=== PATIENT | male | born 1950 | race Caucasian/White ===

== ENCOUNTER 2019-07-07 20:31 | Inpatient (IN) | payer OTHER ==
[~2019-07-07] VITALS: Ht 175.3 cm; Wt 109.2 kg
[2019-07-07] MEDS ORDERED: methylPREDNISolone INJ 125 MG/2 ML VIAL (J2930) IV ONE (20:45)
[2019-07-07] MEDS ORDERED: ASPIRIN 81 MG CHEW TABLET PO ONE (20:45)
[2019-07-07] MEDS: LEVEMIR (INSULIN DETEMIR) 1 UNITS/0.01ML SC SCH (21:00)
[2019-07-07 21:01] LABS: VENOUS PH 7.413 UNITS (7.330-7.430)
[2019-07-07 21:02] LABS: VENOUS BASE EXCESS -1.2 (-2.0-2.0); VENOUS HCO3 22.9 MEQ/L (23.0-27.0); VENOUS O2 SATURATION 89.8 % (60.0-80.0); VENOUS PARTIAL PRESSURE CO2 36.7 mmHg (38.0-50.0); VENOUS PARTIAL PRESSURE O2 59.6 mmHg (30.0-50.0); VENOUS STANDARD HCO3 23.3 MEQ/L
[2019-07-07] MEDS: IPRATROPIUM 0.5MG/ALBUTEROL 2.5MG INH SOL UD 3ML (DUONEB)(J7620) NEB PRN ×2 (21:23→21:31)
[2019-07-07] MEDS ORDERED: ASPI81TA85 PO (21:29)
[2019-07-07] MEDS ORDERED: FURO40TA2 (21:29)
[2019-07-07] MEDS ORDERED: ATOR40TA75 PO (21:29)
[2019-07-07] MEDS ORDERED: LANTINJ4 SC (21:29)
[2019-07-07] MEDS ORDERED: GLYB25TA (21:29)
[2019-07-07] MEDS ORDERED: OMEP40CA97 PO (21:29)
[2019-07-07 21:44] LABS: BASO % 0.2 % (0.0-1.0); EOS # 0.1 10^3/uL (0.0-0.5); EOS % 1.2 % (0.0-3.0); HEMATOCRIT 40.1 % (42.0-52.0); HEMOGLOBIN 14.1 g/dl (13.5-17.5); LYMPH % 22.3 % (24.0-44.0); MEAN CORPUSCULAR HEMOGLOBIN 31.7 pg (27.0-33.0); MEAN CORPUSCULAR HGB CONC 35.2 g/dl (32.0-36.5); MEAN CORPUSCULAR VOLUME 90.1 fl (80.0-96.0); MONO # 0.6 10^3/uL (0.0-0.8); NEUTROPHILS % 68.6 % (36.0-66.0); PLATELET COUNT, AUTOMATED 181 10^3/uL (150-450); RED BLOOD COUNT 4.45 10^6/uL (4.30-6.10); WHITE BLOOD COUNT 8.8 10^3/uL (4.0-10.0)
[2019-07-07 21:55] LABS: INR 1.06; PROTHROMBIN TIME 13.5 SECONDS (11.8-14.0)
[2019-07-07 22:13] LABS: D-DIMER QUANT > 4000 ng/ml (<500)
[2019-07-07 22:24] LABS: ALBUMIN 3.6 GM/DL (3.2-5.2); BILIRUBIN,DIRECT 0.2 MG/DL (0.0-0.2); BILIRUBIN,TOTAL 0.5 MG/DL (0.2-1.0); CALCIUM LEVEL 8.9 MG/DL (8.8-10.2); CK-MB VALUE MASS 1.8 NG/ML (<3.6); CREATININE FOR GFR 1.28 MG/DL (0.70-1.30); GLOMERULAR FILTRATION RATE 59.7 (>49); MB/CK RELATIVE INDEX 2.2 (< OR =4); POTASSIUM SERUM 4.2 MEQ/L (3.5-5.1); TOTAL PROTEIN 6.7 GM/DL (6.4-8.2); TROPONIN I 0.25 NG/ML (< 0.10)
[2019-07-07] MEDS ORDERED: HumuLIN R (REGULAR) INSULIN (NovoLIN R) **100U/ML** PER UNIT IV ONE (23:00)
[2019-07-07] MEDS ORDERED: ISOVUE-370 76% 100ML VIAL (Q9967) As Ordered ONE (23:07)
--- NOTE | 2019-07-07 23:43 | REPVR ---
PROCEDURE INFORMATION: Exam: CT Angiography Chest With Contrast Exam date and time: 07/07/2019 10:41 PM Clinical history: 69 years old, male; Shortness of breath; Chest pain; Type not specified; Additional info: Cp SOB TECHNIQUE: Imaging protocol: Computed tomographic angiography of the chest with intravenous contrast. 3D rendering: MIP reconstructed images were created and reviewed. Radiation optimization: All CT scans at this facility use at least one of these dose optimization techniques: automated exposure control; mA and/or kV adjustment per patient size (includes targeted exams where dose is matched to clinical indication); or iterative reconstruction. Contrast material: ISO; Contrast volume: 75 ml; Contrast route: AC; COMPARISON: CR PORTABLE CHEST X-RAY 07/07/2019 9:11 PM FINDINGS: Pulmonary arteries: The main pulmonary artery measures 30 mm. There is moderately prominent bilateral pulmonary embolism which involves all lobes. Aorta: The ascending thoracic aorta measures 30 mm. Lungs: Minimal bibasilar fibro-atelectatic change. Pleural space: Unremarkable. No pneumothorax. No pleural effusion. Heart: RV diameter is 5.4 cm, LV diameter is 3.2 cm. RV/LV ratio is 1.7. Liver: The liver attenuation is 44 Hounsfield units and the spleen is 78 Hounsfield units. Lymph nodes: Unremarkable. No enlarged lymph nodes. Bones/joints: Unremarkable. No acute fracture. Soft tissues: Unremarkable. IMPRESSION: 1. Moderately prominent bilateral pulmonary embolism involving all lobes. 2. Elevated RV/LV ratio of 1.7. Electronically signed by: Amari Card On 07/07/2019 23:43:09 PM
[2019-07-08] VITALS (25 sets, daily range): BP systolic 121–137; BP diastolic 62–81; O2SAT 82–96
[2019-07-08 00:04] LABS: CK-MB VALUE MASS 1.9 NG/ML (<3.6); MB/CK RELATIVE INDEX 2.47 (< OR =4); TROPONIN I 0.28 NG/ML (< 0.10)
[2019-07-08] MEDS ORDERED: ATOR40TA75 PO (00:13)
[2019-07-08] MEDS ORDERED: OMEP-218 PO (00:13)
[2019-07-08] MEDS ORDERED: FURO40TA2 PO (00:13)
[2019-07-08] MEDS ORDERED: GLYB25TA PO (00:13)
[2019-07-08] MEDS ORDERED: ASPI-161 PO (00:13)
[2019-07-08] MEDS ORDERED: LANTINJ4 SC (00:13)
[2019-07-08] MEDS ORDERED: METF10004 PO (00:16)
[2019-07-08] MEDS ORDERED: LISI-1046 PO (00:16)
[2019-07-08] MEDS ORDERED: FISH1000 PO (00:16)
[2019-07-08] MEDS ORDERED: DONE10TA90 PO (00:16)
[2019-07-08] MEDS ORDERED: NAME10TA PO (00:16)
[2019-07-08] MEDS ORDERED: VITA-145 PO (00:16)
[2019-07-08] MEDS ORDERED: HEPARIN SOD (PORCINE) 5000 UNITS/ML VIAL IV PRN (00:30)
[2019-07-08] MEDS ORDERED: HEPARIN SOD (PORCINE) 5000 UNITS/ML VIAL IV ONE (00:30)
[2019-07-08 01:34] LABS: PARTIAL THROMBOPLASTIN TIME 32.3 SECONDS (25.0-38.4)
[2019-07-08] MEDS: HEPARIN DRIP 25,000 UNITS in IV 1 EA IV SCH ×2 (03:03→22:01)
--- NOTE | 2019-07-08 03:07 | REP ---
Clinical: Cough and dyspnea . Comparison: None . Findings: The mediastinum and cardiac silhouette are stable and within normal limits for portable technique. The lung butterfield are clear without acute consolidation, effusion, or pneumothorax. Skeletal structures are intact. Impression: No acute cardiopulmonary process appreciated. Electronically Signed by Abel Osorio MD 07/08/2019 02:57 A
[2019-07-08] MEDS ORDERED: DEXTROSE 50% 50 ML SYRINGE IV PRN (03:15)
[2019-07-08] MEDS ORDERED: GLUCOSE 4 GM CHEW TABLET PO PRN (03:15)
[2019-07-08] MEDS ORDERED: GLUCAGON FOR INJ 1 MG VIAL (J1610) SC PRN (03:15)
--- NOTE | 2019-07-08 05:56 | HPEPDOC ---
[facility] Medical History & Physical Date of Admission Jul 08, 2019 Date of Service: Jul 08, 2019 Attending Physician: DELANO MIKE MD History and Physical CHIEF COMPLAINT: Shortness of breath with chest tightness HISTORY OF PRESENT ILLNESS: Jaspal a 69-year-old male with a pertinent past medical history of early onset dementia and diabetes mellitus II, who presented to the emergency department on the evening of 07/07 with the chief complaints of shortness of breath with accompanying chest tightness and right pectoral pain. Patient reports becoming acutely short of breath around 7 PM while at his jewish with accompanying dizziness and near syncope. Patient was able to catch himself before fainting or falling. He was also experiencing palpitations, early exhaustion, and 9/10, nonradiating, constant, sharp pain in his right pectoral area. Patient was able to steady himself enough to ambulate to his vehicle. Patient had to stop every 10 feet or so to rest while ambulating to the car his dyspnea and exhaustion was so acutely severe. Patient sat in his car for about 10 minutes to a point where he felt okay enough to drive home. When patient arrived home around 8 PM, his continued significant dyspnea with palpitations and early exhaustion with even minimal activity convinced him to present to the emergency department. Patient says he's never had this constellation of symptoms before. In the emergency department, patient received 2 nebulizer treatments that sign ificantly improved his dyspnea. His right pectoral chest pain had diminished at this point to a 2/10. Patient also endorsed some mild generalized weakness and shortness of breath over the previous week. He denies any recent illness, recent change in medications, recent sick contacts. Denies any recent extensive travel or long periods of inactivity, as he is active with his jewish and as a [employer] r. He denies any recent surgeries or any recent falls or trauma. He has no history of DVT, pulmonary and was in, clotting disorder, family, clotting disorder, bleeding disorder, or family being disorder. Patient takes 81 mg aspirin at home and has never taken a blood thinning medication. In addition to the 2 nebulizer treatments, patient also received a loading dose of Solu-Medrol and a 324 mg of chewable aspirin in the ED. CTA of the chest showed moderately prominent bilateral pulmonary emboli involving all lobes. There was also an increased right ventricle the left ventricle ratio. Initial troponins were 0.25 in increased on repeat 2.28. D-dimer was greater than 4000. Fasting glucose was elevated. Initial CBC and portable chest x-ray were unremarkable. Patient is transitioning to the [place] for his primary care from Dr. Marcus in [place]. He also follows with an industrial relations representative in [place] and follows with a neurologist [facility] (Dr. Brandon). Patient verbalizes to hospitalist team that his CODE STATUS is DNR/DNI. Patient was admitted to the progressive care unit under medical management of the hospitalist team. Patient was started on a heparin drip and telemetry. PAST MEDICAL HISTORY: Early-onset dementia Diabetes mellitus II Left-sided vestibular cochlear nerve issues Bilateral hearing loss PAST SURGICAL HISTORY: Bilateral total knee replacements (left 1999, right 2003) Bilateral surgical shoulder repairs Left patellar fracture surgical repair with hardware Tonsillectomy, 8 years old SOCIAL HISTORY: Marital status: Resides: At home with Children: One adopted child, Employment: Retired, 20 [employer] career, followed by [address] [employer], [place]. 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 Tobacco use: Smoked pipe tobacco for 30 years, averaging one pack per day. Quit 24 years ago. ETOH: Yes, averages one beer or 2 glasses of wine per day Illicit drug use: No active use and only experimented with marijuana roughly 30 years ago while in the [employer] IV drug use: Denies FAMILY HISTORY: Father: Hypertension and liver cirrhosis Mother: Multiple myeloma and hypertension Siblings: Diabetes mellitus II with significant complications, sister Hereditary Diseases: No family history of clotting or bleeding disorders. ALLERGIES: Please see below. REVIEW OF SYSTEMS: CONSTITUTIONAL: Endorses persistent chills; denies fever, night sweats, recent unintentional significant change in weight HEENT: Endorses feeling dizzy over the past week, endorses blurry vision; denies headache, feeling lightheaded, dysphagia, or odynophagia CARDIOVASCULAR: Endorses 2/10 right pectoral chest pain, endorses bilateral lower extremity swelling; denies chest pressure or palpitations at time of exam RESPIRATORY: Endorses dry cough; denies feeling shortness of breath at time of exam, denies pleuritic chest pain at time of exam GASTROINTESTINAL: Denies abdominal pain, feeling nauseated, or vomiting MUSCULOSKELETAL: Denies any specific muscle or joint pain NEUROLOGICAL: Endorses bilateral pedal numbness ENDOCRINE: Endorses polydipsia, endorses cold intolerance HEMATOLOGIC/LYMPHATIC: Denies any easy bleeding or bruising HOME MEDICATIONS: Please see below. PHYSICAL EXAMINATION: VITAL SIGNS: Temperature 97.6, pulse 118, respiratory rate 16, blood pressure 128/78, pulse oximetry 88-90% on 5 L nasal cannula. GENERAL APPEARANCE: Pleasant, very loquacious man who is on 5 L nasal cannula supplemental oxygen while lying upright in bed. He is awake, alert and oriented 3. He is interactive and is speaking in full sentences without getting short of breath. He does not appear to be in any acute respiratory distress. HEENT: Normocephalic, atraumatic. Anicteric sclera. Pupils are equal, round and reactive to light and accommodation. Extraocular motion is intact. Mucous memb ranes are pink and moist. There is no frontal exudate or erythema. Front upper teeth absent. No palpable cervical or supraclavicular lymphadenopathy CARDIOVASCULAR: Tachycardic. Heart sounds were distant but normal S1, S2 was appreciated. Difficult to appreciate for any murmurs, rubs, or gallops. Due to distant heart sounds. Good capillary refill. Palpable radial pulses bilaterally. LUNGS: Mildly diminished tidal volume. Lungs were clear to auscultation bilaterally, anteriorly and posteriorly. Symmetric chest expansion. There did not appear to be any accessory muscle use, lip pursing, or retractions with respiration. There was no tympany to percussion, nor was there any e to a egophony. Patient was receiving 5 L of supplemental oxygen by nasal cannula. He was speaking in full sentences without getting short of breath while lying in bed. ABDOMEN: Soft, obese, nontender, nonpainful to palpation. Normoactive bowel sounds present. No palpable masses appreciated. MUSCULOSKELETAL: 5 out of 5 muscle strength testing of upper extremities and lower extremities bilaterally EXTREMITIES: 2+ right lower extremity pitting edema, 3+ left lower extremity pitting edema. Palpable radial pulses bilaterally as well as palpable right dorsalis pedis pulse. Difficult to appreciate pulses on the left lower extremity due to edema. There was no calf tenderness to palpation. There is no erythema or warmth of bilateral lower extremities. NEUROLOGICAL: Awake, alert and oriented 3. Interactive and responding properly to questions and commands. On cranial nerve testing, there was diminished hearing in bilateral ears, otherwise grossly intact. There were no focal deficits appreciated. There was diminished sensation of light touch bilateral feet. PSYCHIATRIC: Very gregarious and loquacious man with appropriate mood and appropriate affect. LABORATORY DATA: Please see below. IMAGIN/17, Chest CT angiography Moderately prominent bilateral pulmonary embolism involving all lobes. Elevated RV/LV ratio of 1.7. 07/07, portable Chest X-ray- no acute cardiopulmonary process appreciated. MICROBIOLOGY: Please see below. ASSESSMENT & PLAN: This is a 69-year-old male with pertinent past medical history of early-onset dementia and diabetes mellitus II who developed acutely severe dyspn ea with accompanying palpitations, dizziness, and right pectoral chest pain earlier this evening. Patient presented the emergency department and was found to have bilateral pulmonary emboli that were moderately prominent and involving all lung lobes. Patient has no previous history of DVT or PE with no personal or family history of clotting or bleeding disorders. Patient denies any recent extensive travel, recent surgery, recent long period of inactivity, recent change in medication, or recent trauma/fall. Patient has never been on any blood thinning medication. #Submassive bilateral pulmonary emboli -CTA showed moderately prominent bilateral pulmonary emboli involving all lobes. There was also right ventricular strain noted and accompanying positive troponins/troponin leak -Patient started on heparin drip due to the presentation and extent of bilateral PEs. Likely continue drip for at least 24 hours, and if patient remains hemodynamically stable, potentially could switch to Eliquis or warfarin. -Patient frankly volume overloaded with bilateral pitting edema, but this is a secondary concern at this time to addressing the PE. Patient is hemodynamically stable, but the risk of hemodynamic instability remains secondary to known right ventricular strain. As a result, patient's home diuretic was held. Diuretics may be resumed when patient is clinically stable and has shown sustained hemodynamic stability. -Echocardiogram ordered for today in the setting of increased right ventricular to left ventricular ratio on CTA. -Patient on telemetry -Patient's home 81mg aspirin continued -Patient placed on bedrest with bathroom privileges due to risk of bleeding with heparin drip if fall occurs #Diabetes mellitus II -Initial fasting glucose 459 with POC 331 -Patient's home metformin and glyburide were held -Continuing with patient's home insulin glargine and atorvastatin -Patient on finger stick blood sugars before meals and at bedtime with sliding scale insulin coverage before meals and at bedtime -Consistent carb diet ordered #Early-onset dementia -Patient was awake, alert and oriented 3 during exam. He was interactive, responding appropriately to questions commands -Continue with home amantadine and donepezil #DVT prophylaxis: Patient is currently on heparin drip Vital Signs Vital Signs Date Time Temp Pulse Resp B/P (MAP) Pulse Ox O2 Delivery O2 Flow Rate FiO2 07/08/19 02:05 97.6 120 21 128/78 (95) 90 Nasal Cannula 5.0 Laboratory Data Labs 24H Laboratory Tests 2 07/07/19 20:52: Blood Gas Bicarbonate Standard 23.3, Venous Blood pH 7.413, Venous Blood Partial Pressure CO2 36.7L, Venous Blood Partial Pressure O2 59.6H, Venous Blood Total Carbon Dioxide 24.0, Venous Blood HCO3 22.9L, Venous Blood Oxygen Saturation 89.8H, Venous Blood Base Excess -1.2 07/07/19 21:39: Immature Granulocyte % (Auto) 0.7, Neutrophils (%) (Auto) 68.6H, Lymphocytes (%) (Auto) 22.3L, Monocytes (%) (Auto) 7.0H, Eosinophils (%) (Auto) 1.2, Basophils (%) (Auto) 0.2, Neutrophils # (Auto) 6.0, Lymphocytes # (Auto) 2.0, Monocytes # (Auto) 0.6, Eosinophils # (Auto) 0.1, Basophils # (Auto) 0.0, Nucleated Red Blood Cells % (auto) 0.0, Prothrombin Time 13.5, Prothromb Time International Ratio 1.06, Activated Partial Thromboplast Time 32.3, D-Dimer, Quantitative > 4000H, Anion Gap 7L, Glomerular Filtration Rate 59.7, Calcium Level 8.9, Total Bilirubin 0.5, Direct Bilirubin 0.2, Aspartate Amino Transf (AST/SGOT) 66H, Alanine Aminotransferase (ALT/SGPT) 88H, Alkaline Phosphatase 114, Total Creatine Kinase 82, Creatine Kinase MB 1.8, Creatine Kinase MB Relative Index 2.20, Troponin I 0.25H, VP-Xka-K-Type Natriuretic Peptide 84, Total Protein 6.7, Albumin 3.6, Albumin/Globulin Ratio 1.16 07/07/19 23:25: Total Creatine Kinase 77, Creatine Kinase MB 1.9, Creatine Kinase MB Relative Index 2.47, Troponin I 0.28H 10/18/19 00:05: Bedside Glucose (Misc Panel) 331H 07/08/19 03:00: Bedside Glucose (Misc Panel) 354H CBC/BMP Laboratory Tests 07/07/19 21:39 Home Medications Scheduled Aspirin (Aspirin EC) 81 Mg Tablet.dr, 81 MG PO DAILY Atorvastatin Calcium (Atorvastatin Calcium) 40 Mg Tablet, 40 MG PO DAILY Cholecalciferol (Vitamin D3) (Vitamin D3) 1,000 Unit Tablet, 2,000 UNIT PO DAILY Donepezil HCl (Donepezil HCl) 10 Mg Tablet, 10 MG PO DAILY Furosemide (Furosemide) 40 Mg Tablet, 40 MG PO DAILY Glyburide (Glyburide) 2.5 Mg Tablet, 2.5 MG PO DAILY Insulin Glargine,Hum.rec.anlog (Lantus Solostar) 100 Unit/1 Ml Insuln.pen, 50 UNITS SC QHS Lisinopril (Lisinopril) 2.5 Mg Tablet, 2.5 MG PO DAILY Memantine HCl (Namenda) 10 Mg Tablet, 10 MG PO BID Metformin HCl (Metformin HCl) 1,000 Mg Tablet, 1,000 MG PO BIDPC [place]-3 Fatty Acids/Fish Oil (Fish Oil 1,000 mg Capsule) 1 Each Capsule, 1,000 MG PO DAILY Omeprazole (Omeprazole) 20 Mg Capsule.dr, 20 MG PO DAILY Allergies Coded Allergies: No Known Allergies (Unverified , 07/07/19) A-FIB/CHADSVASC A-FIB History Current/History of A-Fib/PAF?: No Current PO Anticoag Therapy: No (patient currently on heparin drip) GME ATTESTATION GME ATTESTATION My faculty preceptor for this patient encounter was physically present during the encounter and was fully available. All aspects of the patient interview, examination, medical decision making process, and medical care plan development were reviewed and approved by the faculty preceptor. The faculty preceptor is aware and concurs with the plan as stated in the body of this note and will attest to such by his/her cosignature. ATTENDING NOTE I agree with the excellent synopsis by Dr. Paz above. Briefly Mr. 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 We started him on a heparin gtt overnight with tentative plan to switch him to eliquis before discharge. Of note, these PEs appear to be unprovoked in this very active gentleman, and will warrant outpatient work up for possible precipitants including indicated age appropriate cancer screening. DAVIS JEAN PGY-1 Jul 08, 2019 05:56 DELANO MIKE MD Jul 08, 2019 08:28
[2019-07-08] MEDS ORDERED: HumaLOG INSULIN (NovoLOG) PER UNIT SC SCH (06:00)
[2019-07-08] MEDS: HumaLOG INSULIN (NovoLOG) PER UNIT SC SCH ×4 (07:41→20:52)
[2019-07-08] MEDS: VITAMIN D 1,000 INTERNATIONAL UNITS TABLET PO SCH (09:20)
[2019-07-08] MEDS: OMEPRAZOLE 20 MG CAP PO SCH (09:20)
[2019-07-08] MEDS: MEMANTINE 5MG TABLET (NAMENDA) PO SCH ×2 (09:20→20:53)
[2019-07-08] MEDS: ATORVASTATIN 20 MG TAB PO SCH (09:21)
[2019-07-08] MEDS: ASPIRIN 81 MG ENTERIC TAB PO SCH (09:21)
[2019-07-08] MEDS: DONEPEZIL 5 MG TAB PO SCH (09:21)
--- NOTE | 2019-07-08 19:48 | ECGEPIP ---
[facility] - ED Test Date: 2019-07-07 Pat Name: KG MENDEZ Department: Room: [place] [address] Gender: Male High Scaler: jeronimo : 1950 Requested By: SANJANA MANZO Order Number: [id number] Reading MD: Keith Barrow Measurements Intervals [place] Rate: 129 P: 62 WY: 153 QRS: 69 QRSD: 102 T: 5 QT: 325 QTc: 477 Interpretive Statements SINUS TACHYCARDIA NONSPECIFIC ST & T-WAVE ABNORMALITY ABNORMAL RHYTHM ECG PROLONGED QTC NO PRIOR ECG FOR COMPARISON Electronically Signed on 07-08-2019 19:48:01 EDT by Keith Barrow
--- NOTE | 2019-07-08 19:53 | ECGEPIP ---
[facility] - ED Test Date: 2019-07-07 Pat Name: KG MENDEZ Department: Room: [place] [address] Gender: Male Lap Regulator: ARSLAN : 1950 Requested By: SANJANA MANZO Order Number: [id number] Reading MD: Keith Barrow Measurements Intervals [place] Rate: 119 P: 59 MT: 175 QRS: 63 QRSD: 92 T: -7 QT: 352 QTc: 496 Interpretive Statements SINUS TACHYCARDIA NONSPECIFIC T-WAVE ABNORMALITY PROLONGED QTC CW 07/07/[address] T WAVE CHANGES Electronically Signed on 07-08-2019 19:52:57 EDT by Keith Barrow
[2019-07-08] MEDS: LEVEMIR (INSULIN DETEMIR) 1 UNITS/0.01ML SC SCH (20:53)
--- NOTE | 2019-07-08 22:14 | ECHO ---
DATE OF PROCEDURE: 07/08/2019 REFERRING PHYSICIAN: Dr. José Antonio Camarillo- PGY-1 INDICATION: Dyspnea. HEIGHT: 175 cm WEIGHT: 108 kg 2D MEASUREMENTS: Left ventricle diastole: 3.7 cm Ventricular septum: 0.98 cm Posterior wall: 1.07 cm LVOT: 2.0 cm Aortic root: 2.4 cm Left atrium: 3.4 cm Inferior vena cava: 2.1 cm DOPPLER MEASUREMENTS: Aortic valve velocity: 228 cm/s LVOT velocity: 90.0 cm/s LVOT VTI: 16.2 cm Mitral E velocity: 59.1 cm/s Mitral A velocity: 78.8 cm/s Very mild tricuspid regurgitation. Estimated right ventricle systolic pressure at least 50 mmHg assuming a right atrial pressure of at least 20 mmHg. No aortic regurgitation. No aortic stenosis. No mitral regurgitation. No pulmonic regurgitation. MITRAL ANNULAR TISSUE DOPPLER: E prime septal: 7.1 cm/s E prime lateral: 6.6 cm/s DESCRIPTION: Rhythm was sinus tachycardia. Image quality was fair. No pericardial effusion. This was a 2D, M-mode, color flow Doppler and pulse wave Doppler examination that included mitral annular tissue Doppler. CONCLUSIONS: 1. At least mild right ventricle dilatation with presence of right ventricle hypertrophy and prominent moderator band of the right ventricle. The appearance of moderate reduction in overall right ventricle systolic function. At least mild right atrial dilatation. Suggestive of at least moderate elevation of estimated right ventricle systolic pressure (at least 50 mmHg). Inferior vena cava plethora with marked reduction of respiratory variation suggestive of central venous pressure of at least 20 mmHg. 2. Normal left ventricle internal dimensions and wall thickness. Normal regional left ventricle (LV) wall motion and wall thickening. Normal LV systolic function. Left ventricular ejection fraction (LVEF) 65% by visual estimate. Grade 1 LV diastolic dysfunction. 3. Severe focal thickening and focal cusp deposits of a three-cuspid aortic valve. No reduction in aortic cusp mobility. No aortic stenosis. No aortic regurgitation. 4. Mild mitral annular calcification. No mitral regurgitation. 5. No pericardial effusion.
[2019-07-09] VITALS (24 sets, daily range): BP systolic 117–150; BP diastolic 71–82; O2SAT 87–96
[2019-07-09 05:58] LABS: HEMOGLOBIN 12.9 g/dl (13.5-17.5); MEAN CORPUSCULAR HEMOGLOBIN 31.1 pg (27.0-33.0); MEAN CORPUSCULAR HGB CONC 33.9 g/dl (32.0-36.5); MEAN CORPUSCULAR VOLUME 91.6 fl (80.0-96.0); PLATELET COUNT, AUTOMATED 184 10^3/uL (150-450); RED BLOOD COUNT 4.15 10^6/uL (4.30-6.10); WHITE BLOOD COUNT 9.6 10^3/uL (4.0-10.0)
[2019-07-09] MEDS: MEMANTINE 5MG TABLET (NAMENDA) PO SCH ×2 (08:21→21:31)
[2019-07-09] MEDS: DONEPEZIL 5 MG TAB PO SCH (08:21)
[2019-07-09] MEDS: ATORVASTATIN 20 MG TAB PO SCH (08:21)
[2019-07-09] MEDS: HumaLOG INSULIN (NovoLOG) PER UNIT SC SCH ×4 (08:21→21:00)
[2019-07-09] MEDS: OMEPRAZOLE 20 MG CAP PO SCH (08:21)
[2019-07-09] MEDS: ASPIRIN 81 MG ENTERIC TAB PO SCH (08:21)
[2019-07-09] MEDS: VITAMIN D 1,000 INTERNATIONAL UNITS TABLET PO SCH (08:21)
[2019-07-09] MEDS: HEPARIN DRIP 25,000 UNITS in IV 1 EA IV SCH (14:37)
--- NOTE | 2019-07-09 16:07 | IPNPDOC ---
Text Note Date of Service The patient was seen on 07/09/19. NOTE SUBJECTIVE: SUBJECTIVE: Mr. Tai reports that he is breathing more easily. He does not have any chest pain. Patient was admitted with bilateral pulmonary emboli. OBJECTIVE: Please see vital signs below--she has attained. O2 sats of 97% on 4 L/m; his FiO2 is being weaned down Physical exam: HENT: Neck is supple with no adenopathy or thyromegaly, oral mucosa is moist Cardiovascular exam shows a regular rate and rhythm. Respiratory: No rhonchi, rales, wheezes or cough. There is no pain to palpation of the chest wall. Abdomen: Soft, nontender, nondistended, positive bowel tones. Extremities: Patient has trace to 1+ pitting edema to both lower extremities ASSESSMENT/PLAN: 1. "Submassive" bilateral pulmonary emboli. Patient has been placed on a heparin drip. He had had some shortness of breath but has improved significantly. We are weaning his FiO2. We're hopeful of attaining room air. Once the patient is tolerant of activity and weaned down to room air he can be transitioned off of heparin soon to an oral anticoagulant and discharged to home. 2. History of and concern for congestive heart failure. Echocardiogram shows an ejection fraction of 65%. Note is made of grade 1 diastolic dysfunction. There is no notable valvular dysfunction. Right ventr icular systolic pressure is elevated a bit at 50 mmHg. Patient will continue with his diuretic regimen. 3. Qet-[id number]-hhazuvnqs diabetes mellitus. Patient had had some hyperglycemia; we have restored his basal bolus insulin, metformin and glyburide. 4. Dementia. Patient is reported to have early dementia. He is maintained on amantadine and donepezil. 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 VS,Fishbone, I+O VS, Fishbone, I+O Laboratory Tests 07/09/19 05:44 Vital Signs Date Time Temp Pulse Resp B/P (MAP) Pulse Ox O2 Delivery O2 Flow Rate FiO2 07/09/19 14:00 91 Nasal Cannula 2.0 07/09/19 12:00 98.5 100 18 120/78 (92) I&O- Last 24 Hours up to 6 AM 07/09/19 06:00 Intake Total 1600 ml Output Total 2450 ml Balance -850 ml TIMOTHY SHEPARD MD Jul 09, 2019 16:07
[2019-07-09] MEDS: LISINOPRIL *2.5 MG* TAB PO SCH (16:29)
[2019-07-09] MEDS: FUROSEMIDE 40 MG TAB PO SCH (16:30)
[2019-07-09] MEDS: metFORMIN (GLUCOPHAGE) 1000 MG TABLET PO SCH (18:09)
[2019-07-09] MEDS: LEVEMIR (INSULIN DETEMIR) 1 UNITS/0.01ML SC SCH (21:30)
[2019-07-10] VITALS (9 sets, daily range): BP systolic 109–138; BP diastolic 67–78; O2SAT 85–95
[2019-07-10 06:21] LABS: HEMATOCRIT 38.4 % (42.0-52.0); HEMOGLOBIN 13.2 g/dl (13.5-17.5); MEAN CORPUSCULAR HGB CONC 34.4 g/dl (32.0-36.5); MEAN CORPUSCULAR VOLUME 90.1 fl (80.0-96.0); PLATELET COUNT, AUTOMATED 203 10^3/uL (150-450); RED BLOOD COUNT 4.26 10^6/uL (4.30-6.10); WHITE BLOOD COUNT 7.6 10^3/uL (4.0-10.0)
[2019-07-10] MEDS: HEPARIN DRIP 25,000 UNITS in IV 1 EA IV SCH (07:56)
[2019-07-10] MEDS ORDERED: glyBURIDE 2.5 MG TAB PO SCH (08:00)
[2019-07-10] MEDS: HumaLOG INSULIN (NovoLOG) PER UNIT SC SCH ×2 (08:01→12:36)
[2019-07-10] MEDS: MEMANTINE 5MG TABLET (NAMENDA) PO SCH (08:53)
[2019-07-10] MEDS: LISINOPRIL *2.5 MG* TAB PO SCH (08:53)
[2019-07-10] MEDS: FUROSEMIDE 40 MG TAB PO SCH (08:53)
[2019-07-10] MEDS: ATORVASTATIN 20 MG TAB PO SCH (08:54)
[2019-07-10] MEDS: ASPIRIN 81 MG ENTERIC TAB PO SCH (08:54)
[2019-07-10] MEDS: metFORMIN (GLUCOPHAGE) 1000 MG TABLET PO SCH (08:54)
[2019-07-10] MEDS: OMEPRAZOLE 20 MG CAP PO SCH (08:54)
[2019-07-10] MEDS: VITAMIN D 1,000 INTERNATIONAL UNITS TABLET PO SCH (08:54)
[2019-07-10] MEDS: DONEPEZIL 5 MG TAB PO SCH (08:54)
[2019-07-10] MEDS ORDERED: ELIQ5TAB PO (10:37)
--- NOTE | 2019-07-10 18:00 | DS.PDOC ---
Discharge Summary General Date of Admission Jul 08, 2019 at 00:24 Date of Discharge July 10, 2019 Discharge Summary PROCEDURES PERFORMED DURING STAY: Echocardiogram. ADMITTING DIAGNOSES: 1. Bilateral pulmonary emboli. DISCHARGE DIAGNOSES: 1. Bilateral pulmonary emboli, early onset dementia, diabetes mellitus, hearing loss. COMPLICATIONS/CHIEF COMPLAINT: Pulmonary Emboli. HISTORY OF PRESENT ILLNESS/HOSPITAL COURSE: This is a 69-year-old male who develops chest and pectoral pain. It was accompanied by acute shortness of breath and dizziness. He continued to have disturbing symptoms, especially to his right pectoral area. He noted fatigue that was unusual for him. He subsequently came to the emergency room for evaluation and was found to have bilateral pulmonary emboli. Patient was admitted to the PCU. He was placed on anticoagulation with heparin drip. Of interest, the patient has no family history of any sort of clotting disorder and he's never had a clotting episode in the past. CT angios showed prominent bilateral pulmonary emboli with involvement of "all lobes". Echocard iogram showed left ventricular ejection fraction of 65%, grade 1 diastolic dysfunction and estimated right ventricular systolic pressure 50 mm with right atrial dilatation and decreased right ventricular systolic function. The patient did well. Remarkably, he did not have any cough or chest pain. He did have shortness of breath and fatigue that resolved over the next couple of days to where he could be weaned to room air. He was then fully tolerant of activity. He was then subsequently transitioned from the heparin drip to oral Eliquis. He will be on oral anticoagulation for 3-6 months.. DISCHARGE MEDICATIONS: Please see below. ALLERGIES: Please see below. PHYSICAL EXAMINATION ON DISCHARGE: VITAL SIGNS: Please see below. HENT: Neck is supple with no adenopathy or thyromegaly, oral mucosa is moist Cardiovascular exam shows a regular rate and rhythm. Respiratory: No rhonchi, rales, wheezes or cough. There is no pain to palpation of the chest wall. Abdomen: Soft, nontender, nondistended, positive bowel tones. Extremities: Patient has trace to 1+ pitting edema to both lower extremities, otherwise nontender and no palpable cord LABORATORY DATA: Please see below. IMAGING: CHEST CT ANGIOGRAPHY IMPRESSION: 1. Moderately prominent bilateral pulmonary embolism involving all lobes. 2. Elevated RV/LV ratio of 1.7. Electronically signed by: Amari Card On 07/07/2019 23:43:09 PM PROGNOSIS: ACTIVITY: As tolerated. DIET: Heart healthy DISCHARGE PLAN: The patient is stable for discharge to home. He will follow-up with his primary care provider Amber Duggan in 1 week. He has been started on Eliquis for anticoagulation. We anticipate he will undergo anticoagulation for 3 - 6 months. DISPOSITION: Home, Self-Care. DISCHARGE CONDITION: Stable. TIME SPENT ON DISCHARGE: Greater than 30 minutes. Vital Signs/I&Os Vital Signs Date Time Temp Pulse Resp B/P (MAP) Pulse Ox O2 Delivery O2 Flow Rate FiO2 07/10/19 12:00 97.6 77 18 138/78 (98) 97 Room Air 07/10/19 06:00 2.0 I&O- Last 24 Hours up to 6 AM 07/10/19 06:00 Intake Total 2470 ml Output Total 3650 ml Balance -1180 ml Laboratory Data Labs 24H Laboratory Tests 2 07/09/19 17:59: Activated Partial Thromboplast Time 85.5H 07/09/19 21:01: Bedside Glucose (Misc Panel) 234H 07/10/19 05:59: Activated Partial Thromboplast Time 113.0H, Nucleated Red Blood Cells % (auto) 0.0 07/10/19 06:39: Bedside Glucose (Misc Panel) 150H 07/10/19 11:55: Bedside Glucose (Misc Panel) 182H 07/10/19 13:11: Activated Partial Thromboplast Time 64.6H CBC/BMP Laboratory Tests 07/10/19 05:59 FSBS Laboratory Tests Test 07/09/19 21:01 07/10/19 06:39 07/10/19 11:55 Range/Units Bedside Glucose (Misc Panel) 234 150 182 80-115 MG/DL Microbiology Microbiology 07/08/19 Stool Occult Blood (BENEDICT) - Final, Complete Discharge Medications Scheduled Apixaban (Eliquis) 5 Mg Tablet, 5 MG PO BID 10 MG PO BID X 7 DAYS, THEN 5 MG PO BID Aspirin (Aspirin EC) 81 Mg Tablet.dr, 81 MG PO DAILY, (Reported) Atorvastatin Calcium (Atorvastatin Calcium) 40 Mg Tablet, 40 MG PO DAILY, (Reported) Cholecalciferol (Vitamin D3) (Vitamin D3) 1,000 Unit Tablet, 2,000 UNIT PO DAILY, (Reported) Donepezil HCl (Donepezil HCl) 10 Mg Tablet, 10 MG PO DAILY, (Reported) Furosemide (Furosemide) 40 Mg Tablet, 40 MG PO DAILY, (Reported) Glyburide (Glyburide) 2.5 Mg Tablet, 2.5 MG PO DAILY, (Reported) Insulin Glargine,Hum.rec.anlog (Lantus Solostar) 100 Unit/1 Ml Insuln.pen, 50 UNITS SC QHS, (Reported) Lisinopril (Lisinopril) 2.5 Mg Tablet, 2.5 MG PO DAILY, (Reported) Memantine HCl (Namenda) 10 Mg Tablet, 10 MG PO BID, (Reported) Metformin HCl (Metformin HCl) 1,000 Mg Tablet, 1,000 MG PO BIDPC, (Reported) Dresher-3 Fatty Acids/Fish Oil (Fish Oil 1,000 mg Capsule) 1 Each Capsule, 1,000 MG PO DAILY, (Reported) Omeprazole (Omeprazole) 20 Mg Capsule.dr, 20 MG PO DAILY, (Reported) Allergies Coded Allergies: No Known Allergies (Unverified , 07/07/19) TIMOTHY SHEPARD MD Jul 10, 2019 18:00
== END 2019-07-10 14:30 | disposition home or self-care (01) | DRG 176 ==
LOC: M ED 20:31 → M ED INP 07-08 00:24 → M PCU 07-08 02:05
PROVIDERS: ADMIT Internal Medicine; ATTEND Internal Medicine
DX: I26.99 Other pulmonary embolism without acute cor pulmonale (principal); F03.90 Unspecified dementia, unspecified severity, without behavioral disturbance, psychotic disturbance, mood disturbance, and anxiety; E11.9 Type 2 diabetes mellitus without complications; Z79.82 Long term (current) use of aspirin; Z79.899 Other long term (current) drug therapy

== ENCOUNTER → 2019-08-26 | Outpatient (REF) | payer OTHER, MEDICARE ==
[~2019-08-26] MED LIST: ASPI-161 PO; ASPI81TA85 PO; ATOR40TA75 PO; DONE10TA90 PO; ELIQ5TAB PO; FISH1000 PO; FURO40TA2; FURO40TA2 PO; GLYB25TA; GLYB25TA PO; LANTINJ4 SC; LISI-1046 PO; METF10004 PO; NAME10TA PO; OMEP-218 PO; OMEP40CA97 PO; VITA-145 PO
[2019-08-26 15:11] LABS: APPEARANCE, URINE CLEAR (CLEAR); BACTERIA, URINE AUTO NEGATIVE (NEGATIVE); BILIRUBIN, URINE AUTO NEGATIVE (NEGATIVE); BLOOD, URINE BLOOD 1+ (NEGATIVE); COLOR, URINE COLORLESS (YELLOW); GLUCOSE, URINE (UA) AUTO NEGATIVE (NEGATIVE); KETONE, URINE AUTO NEGATIVE (NEGATIVE); LEUKOCYTE ESTERASE, URINE AUTO NEGATIVE (NEGATIVE); NITRITE, URINE AUTO NEGATIVE (NEGATIVE); PROTEIN, URINE AUTO NEGATIVE (NEGATIVE); RBC, URINE AUTO 0 /HPF (0-3); SPECIFIC GRAVITY URINE AUTO 1.005 (1.002-1.035); SQUAMOUS EPITHELIAL CELL UR AU 0 /HPF (0-6); UROBILINOGEN, URINE AUTO 0.2 mg/dL (0.0-2.0); WBC, URINE AUTO 0 /HPF (0-3)
== END ==
LOC: M SMT 13:21
PROVIDERS: ATTEND Nurse Practitioner Family
DX: R32 Unspecified urinary incontinence (principal)
CPT/HCPCS: 51798; 81001; 87086; G0463

== ENCOUNTER → 2020-09-03 | Outpatient (CLI) | payer OTHER ==
[~2020-09-03] MED LIST changes: -ASPI81TA85 PO; +ASPI81TA86 PO; +D-20TAB PO; +FURO80TA2 PO; -LISI-1046 PO; +LISI2.5T2 PO; +OXYB5TAB10 PO
== END ==
LOC: M LABSMTC 09:53
PROVIDERS: ATTEND Anesthesiology
DX: Z01.812 Encounter for preprocedural laboratory examination (principal); Z20.828 Contact with and (suspected) exposure to other viral communicable diseases

== ENCOUNTER 2020-09-07 07:25 | Day surgery (SDC) | payer OTHER ==
[~2020-09-07] VITALS: Ht 175.3 cm; Wt 109.8 kg
[~2020-09-07 07:25] MED LIST changes: +LIDOCAINE 2% 100MG/5ML SDV (FOR ANES.) As Ordered ONE; +NS 1,000 ML IV ONE; +propofoL 200 MG/20 ML VIAL As Ordered ONE
--- NOTE | 2020-09-07 09:09 | ROOR ---
Patient Name: Philip Tai Procedure Date: 09/07/2020 8:34 AM Date of : 1950 Age: 70 Room: [facility] Gender: Male Note Status: Finalized Procedure: Colonoscopy Indications: Screening for colorectal malignant neoplasm Providers: Celso DÍAZ MD Referring MD: DEMETRIUS MUSTAFA MD, [facility], Admin. Requesting Provider: Medicines: Monitored Anesthesia Care Complications: No immediate complications. Procedure: Pre-Anesthesia Assessment: - The heart rate, respiratory rate, oxygen saturations, blood pressure, adequacy of pulmonary ventilation, and response to care were monitored throughout the procedure. The Colonoscope was introduced through the anus and advanced to the terminal ileum, with identification of the appendiceal orifice and IC valve. The colonoscopy was performed without difficulty. The patient tolerated the procedure well. The quality of the bowel preparation was good. (Pt is on Eliquis for PE). Findings: The perianal and digital rectal examinations were normal. Four sessile and semi-pedunculated polyps were found in the hepatic flexure, ascending colon and cecum. The polyps were 5 to 8 mm in size. These polyps were removed with a cold snare. Resection and retrieval were complete. To prevent bleeding after the polypectomy, nine hemostatic clips were successfully placed. There was no bleeding at the end of the procedure. Mild sigmoid diverticulosis and small internal hemorrhoids. The exam was otherwise without abnormality on direct and retroflexion views. Impression: - Four 5 to 8 mm polyps at the hepatic flexure, in the ascending colon and in the cecum, removed with a cold snare. Resected and retrieved. Clips were placed. - Mild sigmoid diverticulosis and small internal hemorrhoids. - The examination was otherwise normal on direct and retroflexion views. Recommendation: - Repeat colonoscopy in 3 years for surveillance. Procedure Code(s): --- Professional --- 23972, Colonoscopy, flexible; with removal of tumor(s), polyp(s), or other lesion(s) by snare technique Diagnosis Code(s): --- Professional --- K63.5, Polyp of colon Z12.11, Encounter for screening for malignant neoplasm of colon CPT copyright 2019 [employer]. All rights reserved. The codes documented in this report are preliminary and upon senior network security architect review may be revised to meet current compliance requirements. Celso Díaz MD Celso DÍAZ MD 09/07/2020 9:09:51 AM Electronically signed by Celso DÍAZ MD Number of Addenda: 0 Note Initiated On: 09/07/2020 8:34 AM Estimated Blood Loss: Estimated blood loss: none.
[2020-09-07 09:40] VITALS: BP 122/70
== END 2020-09-07 09:44 | disposition home or self-care (01) ==
LOC: M OPP 07:25
PROVIDERS: ATTEND Internal Medicine Gastroenterology
DX: Z12.11 Encounter for screening for malignant neoplasm of colon (principal); K63.5 Polyp of colon; K57.30 Diverticulosis of large intestine without perforation or abscess without bleeding; K64.8 Other hemorrhoids; E11.9 Type 2 diabetes mellitus without complications; J44.9 Chronic obstructive pulmonary disease, unspecified; I27.20 Pulmonary hypertension, unspecified; E78.00 Pure hypercholesterolemia, unspecified; R41.3 Other amnesia; Z86.711 Personal history of pulmonary embolism; Z86.718 Personal history of other venous thrombosis and embolism; Z87.891 Personal history of nicotine dependence; Z96.653 Presence of artificial knee joint, bilateral; Z79.01 Long term (current) use of anticoagulants; Z79.4 Long term (current) use of insulin; Z79.899 Other long term (current) drug therapy; Z83.79 Family history of other diseases of the digestive system; Z83.3 Family history of diabetes mellitus

== ENCOUNTER → 2020-11-15 | Outpatient (CLI) | payer OTHER ==
[~2020-11-15] MED LIST changes: +GLYB2.5T7; +GLYB2.5T7 PO; -GLYB25TA; -GLYB25TA PO; -LIDOCAINE 2% 100MG/5ML SDV (FOR ANES.) As Ordered ONE; -NS 1,000 ML IV ONE; -propofoL 200 MG/20 ML VIAL As Ordered ONE
[2020-11-15 14:07] LABS: ALBUMIN 4.4 GM/DL (3.2-5.2); BILIRUBIN,TOTAL 0.7 MG/DL (0.2-1.0); CREATININE FOR GFR 1.56 MG/DL (0.70-1.30); GLOMERULAR FILTRATION RATE 47.4 (>49); POTASSIUM SERUM 3.9 MEQ/L (3.5-5.1); TOTAL PROTEIN 7.7 GM/DL (6.4-8.2)
== END ==
LOC: M PLALAB 11:01
PROVIDERS: ATTEND Registered Nurse
DX: N18.9 Chronic kidney disease, unspecified (principal)

== ENCOUNTER → 2021-10-23 | Outpatient (REF) | payer OTHER, MEDICARE ==
[~2021-10-23] MED LIST changes: -LISI2.5T2 PO; +LISI2.5T9 PO; +OMEP-173 PO; -OMEP-218 PO; +OMEP40CA4 PO; -OMEP40CA97 PO
[2021-10-23 11:52] LABS: BASO # 0.1 10^3/uL (0.0-0.2); BASO % 0.7 % (0.0-1.0); EOS # 0.3 10^3/uL (0.0-0.5); EOS % 3.6 % (0.0-3.0); HEMATOCRIT 44.4 % (42.0-52.0); HEMOGLOBIN 15.2 g/dl (13.5-17.5); LYMPH % 28.4 % (24.0-44.0); MEAN CORPUSCULAR HGB CONC 34.2 g/dl (32.0-36.5); MEAN CORPUSCULAR VOLUME 90.6 fl (80.0-96.0); MONO # 0.6 10^3/uL (0.0-0.8); MONO % 8.3 % (2.0-8.0); NEUTROPHILS % 58.3 % (36.0-66.0); PLATELET COUNT, AUTOMATED 247 10^3/uL (150-450); WHITE BLOOD COUNT 6.9 10^3/uL (4.0-10.0)
[2021-10-23 12:22] LABS: ERYTHROCYTE SEDIMENTATION RATE 20 mm/hr (0-20)
[2021-10-23 12:28] LABS: ALBUMIN 3.8 GM/DL (3.2-5.2); ALT/SGPT 32 U/L (12-78); BILIRUBIN,TOTAL 0.9 MG/DL (0.2-1.0); BLOOD UREA NITROGEN 24 MG/DL (7-18); C REACTIVE PROTEIN QUANTITATIV 1.27 MG/DL (0.00-0.30); CALCIUM LEVEL 9.2 MG/DL (8.8-10.2); CARBON DIOXIDE LEVEL 27 MEQ/L (21-32); CHLORIDE LEVEL 99 MEQ/L (98-107); GLOMERULAR FILTRATION RATE > 60.0 (>49); GLUCOSE, FASTING 219 MG/DL (70-100); SODIUM LEVEL 134 MEQ/L (136-145)
== END ==
LOC: M SFHCRHEU 08:50
PROVIDERS: ATTEND Internal Medicine Rheumatology
DX: M25.50 Pain in unspecified joint (principal)
CPT/HCPCS: 80053; 81374; 85025; 85652; 86140; G0463

== ENCOUNTER → 2021-12-26 | Outpatient (CLI) | payer OTHER, MEDICARE | LOC: M RAD 16:28 | PROVIDERS: ATTEND Internal Medicine Rheumatology | DX: M19.90 Unspecified osteoarthritis, unspecified site (principal) ==

== ENCOUNTER → 2022-02-18 | Outpatient (CLI) | payer OTHER, MEDICARE ==
[2022-02-18 15:23] LABS: CALCIUM LEVEL 9.2 MG/DL (8.8-10.2); CREATININE FOR GFR 1.65 MG/DL (0.70-1.30); GLOMERULAR FILTRATION RATE 44.3 (>49); POTASSIUM SERUM 3.5 MEQ/L (3.5-5.1)
== END ==
LOC: M LAB 14:08
PROVIDERS: ATTEND Registered Nurse
DX: N18.31 Chronic kidney disease, stage 3a (principal)

== ENCOUNTER → 2023-05-11 | Outpatient (CLI) | payer OTHER, MEDICARE ==
[2023-05-11 17:06] LABS: ALBUMIN 3.9 G/DL (3.2-5.2); BLOOD UREA NITROGEN 22 MG/DL (9-23); CALCIUM LEVEL 9.8 MG/DL (8.3-10.6); CARBON DIOXIDE LEVEL 28 MMOL/L (20-31); CHLORIDE LEVEL 103 MMOL/L (98-107); CREATININE FOR GFR 1.05 MG/DL (0.70-1.30); GLOMERULAR FILTRATION RATE > 60.0 (>42); GLUCOSE, FASTING 157 MG/DL (74-106); PHOSPHORUS LEVEL 2.8 MG/DL (2.4-5.1); POTASSIUM SERUM 4.1 MMOL/L (3.5-5.1); SODIUM LEVEL 142 MMOL/L (136-145)
== END ==
LOC: M WUC 14:40
PROVIDERS: ATTEND Registered Nurse
DX: L03.115 Cellulitis of right lower limb (principal)

== ENCOUNTER → 2023-10-29 | Outpatient (REF) | payer OTHER, MEDICARE ==
[~2023-10-29] MED LIST changes: -OXYB5TAB10 PO; +OXYB5TAB11 PO
== END ==
LOC: M LABWUC 17:18
PROVIDERS: ATTEND Nurse Practitioner Family
DX: C61 Malignant neoplasm of prostate (principal)

== ENCOUNTER 2024-01-25 12:58 | Inpatient (IN) | payer OTHER ==
[~2024-01-25] VITALS: Ht 175.3 cm; Wt 104.5 kg
[~2024-01-25 12:58] MED LIST changes: -ASPI-161 PO; +ASPI-615 PO; -OXYB5TAB11 PO; +OXYB5TAB14 PO
[2024-01-25] MEDS ORDERED: ISOVUE-370 76% 100ML VIAL As Ordered ONE (13:17)
[2024-01-25 13:28] LABS: BASO % 0.6 % (0.0-1.0); EOS # 0.3 10^3/uL (0.0-0.5); EOS % 3.9 % (0.0-3.0); HEMATOCRIT 37.2 % (42.0-52.0); HEMOGLOBIN 12.7 g/dl (13.5-17.5); LYMPH # 2.2 10^3/uL (1.5-5.0); LYMPH % 33.3 % (24.0-44.0); MEAN CORPUSCULAR HEMOGLOBIN 30.8 pg (27.0-33.0); MEAN CORPUSCULAR HGB CONC 34.1 g/dl (32.0-36.5); MEAN CORPUSCULAR VOLUME 90.3 fl (80.0-96.0); MONO # 0.7 10^3/uL (0.0-0.8); MONO % 10.5 % (2.0-8.0); NEUTROPHILS # 3.3 10^3/uL (1.5-8.5); NEUTROPHILS % 50.9 % (36.0-66.0); PLATELET COUNT, AUTOMATED 195 10^3/uL (150-450); RED BLOOD COUNT 4.12 10^6/uL (4.30-6.10); WHITE BLOOD COUNT 6.5 10^3/uL (4.0-10.0)
[2024-01-25 13:32] LABS: VENOUS BASE EXCESS -2.1 (-2.0-2.0); VENOUS HCO3 23.1 MMOL/L (23.0-27.0); VENOUS O2 SATURATION 82.7 % (60.0-80.0); VENOUS PARTIAL PRESSURE CO2 40.9 mmHg (38.0-50.0); VENOUS PARTIAL PRESSURE O2 50.3 mmHg (30.0-50.0); VENOUS PH 7.369 UNITS (7.330-7.430); VENOUS STANDARD HCO3 22.4 MMOL/L; VENOUS TOTAL CO2 24.3 MMOL/L (24.0-28.0)
[2024-01-25 13:41] LABS: INR 1.25; PARTIAL THROMBOPLASTIN TIME 28.8 SECONDS (24.8-34.2); PROTHROMBIN TIME 15.3 SECONDS (12.5-14.5)
[2024-01-25] MEDS ORDERED: diltiaZEM 125 MG in NS 100 ML IV SCH ×2 (13:45→15:00)
[2024-01-25 13:53] LABS: BLOOD UREA NITROGEN 31 MG/DL (9-23); CALCIUM LEVEL 9.2 MG/DL (8.3-10.6); CARBON DIOXIDE LEVEL 24 MMOL/L (20-31); CHLORIDE LEVEL 102 MMOL/L (98-107); CREATININE FOR GFR 1.16 MG/DL (0.70-1.30); GLOMERULAR FILTRATION RATE > 60.0 (>42); GLUCOSE, FASTING 219 MG/DL (74-106); POTASSIUM SERUM 3.7 MMOL/L (3.5-5.1); SODIUM LEVEL 136 MMOL/L (136-145)
[2024-01-25 14:55] LABS: C REACTIVE PROTEIN QUANTITATIV < 0.40 MG/DL (<1.0)
[2024-01-25 14:56] LABS: CPK CREATINE PHOSPHOKINASE 95 U/L (46-171); MB/CK RELATIVE INDEX 1.05 (< OR =4)
[2024-01-25 14:57] LABS: ALBUMIN 2.8 G/DL (3.2-5.2); ALKALINE PHOSPHATASE 92 U/L (46-116); ALT/SGPT 35 U/L (7.0-40); AST/SGOT 17 U/L (<34); BILIRUBIN,DIRECT 0.2 MG/DL (<0.4); BILIRUBIN,TOTAL 0.6 MG/DL (0.3-1.2); MAGNESIUM LEVEL 1.5 MG/DL (1.8-2.4); TOTAL PROTEIN 6.1 G/DL (5.7-8.2)
[2024-01-25 15:01] LABS: FREE T4 0.93 NG/DL (0.89-1.76); THYROID STIMULATING HORMONE 2.085 uIU/ML (0.55-4.78)
[2024-01-25 15:05] LABS: PROCALCITONIN 0.06 ng/ml
[2024-01-25] MEDS: MAG SULF 1GM/100ML (MAG RUN) 1 GM in IV 1 EA IV ONE (15:15)
[2024-01-25] MEDS: ASPIRIN 81MG CHEW TABLET PO ONE (19:15)
[2024-01-25] MEDS ORDERED: POTA-151 PO (19:58)
[2024-01-25] MEDS ORDERED: JARD1TAB3 PO (19:58)
[2024-01-25] MEDS ORDERED: OXYB5TAB14 PO (19:58)
[2024-01-25] MEDS ORDERED: ACET-897 PO (19:58)
[2024-01-25] MEDS ORDERED: ELIQ5TAB PO (19:58)
[2024-01-25] MEDS ORDERED: VITA500T41 PO (19:58)
[2024-01-25] MEDS ORDERED: VITA100093 PO (19:58)
[2024-01-25] MEDS ORDERED: FISH10002 PO (19:58)
[2024-01-25] MEDS ORDERED: INSUH10VL SC (19:58)
[2024-01-25] MEDS ORDERED: TORS20TA2 PO (19:58)
[2024-01-25] MEDS ORDERED: METF750T36 PO (19:58)
[2024-01-25] MEDS ORDERED: SEMA1PEN2 SC (19:58)
[2024-01-25] MEDS ORDERED: MEMA10TA PO (20:47)
[2024-01-25] MEDS ORDERED: NITR4TASL SL (20:49)
[2024-01-25] MEDS ORDERED: MECL-86 PO (22:09)
[2024-01-25] MEDS ORDERED: HOME MED LIST COMPLETE! XX SCH (22:10)
[2024-01-25 23:28] VITALS: BP 156/70; TEMP 97; O2SAT 98
[2024-01-26] MEDS ORDERED: DEXTROSE 50% 50ML SYRINGE IV PRN (00:30)
[2024-01-26] MEDS ORDERED: GLUCAGON INJ 1MG VIAL SC PRN (00:30)
[2024-01-26] MEDS ORDERED: GLUCOSE 4 GM CHEW PO PRN (00:30)
[2024-01-26] MEDS ORDERED: ACETAMINOPHEN 500 MG TAB PO PRN (00:30)
[2024-01-26] MEDS ORDERED: MECLIZINE 25 MG TABLET PO PRN (00:30)
[2024-01-26] MEDS ORDERED: NITROGLYCERIN 0.4MG SUBL TABLET SL PRN (00:30)
[2024-01-26 04:10] VITALS: BP 136/76; TEMP 98; O2SAT 96
[2024-01-26 07:30] VITALS: BP 132/62; TEMP 97.6; O2SAT 98
[2024-01-26 07:48] LABS: BASO % 0.6 % (0.0-1.0); EOS # 0.3 10^3/uL (0.0-0.5); EOS % 6.5 % (0.0-3.0); HEMATOCRIT 35.2 % (42.0-52.0); HEMOGLOBIN 12.1 g/dl (13.5-17.5); LYMPH # 1.3 10^3/uL (1.5-5.0); LYMPH % 27.8 % (24.0-44.0); MEAN CORPUSCULAR HEMOGLOBIN 30.7 pg (27.0-33.0); MEAN CORPUSCULAR HGB CONC 34.4 g/dl (32.0-36.5); MEAN CORPUSCULAR VOLUME 89.3 fl (80.0-96.0); MONO # 0.5 10^3/uL (0.0-0.8); MONO % 10.3 % (2.0-8.0); NEUTROPHILS # 2.5 10^3/uL (1.5-8.5); NEUTROPHILS % 54.2 % (36.0-66.0); PLATELET COUNT, AUTOMATED 173 10^3/uL (150-450); RED BLOOD COUNT 3.94 10^6/uL (4.30-6.10); WHITE BLOOD COUNT 4.6 10^3/uL (4.0-10.0)
[2024-01-26 08:28] LABS: BLOOD UREA NITROGEN 24 MG/DL (9-23); CALCIUM LEVEL 8.5 MG/DL (8.3-10.6); CARBON DIOXIDE LEVEL 25 MMOL/L (20-31); CHLORIDE LEVEL 105 MMOL/L (98-107); CREATININE FOR GFR 0.82 MG/DL (0.70-1.30); GLOMERULAR FILTRATION RATE > 60.0 (>42); GLUCOSE, FASTING 232 MG/DL (74-106); MAGNESIUM LEVEL 1.7 MG/DL (1.8-2.4); SODIUM LEVEL 137 MMOL/L (136-145)
[2024-01-26] MEDS: OMEPRAZOLE 20MG CAP PO SCH (08:51)
[2024-01-26] MEDS: ATORVASTATIN 20 MG TAB PO SCH (08:51)
[2024-01-26] MEDS: VITAMIN D 1,000 INTERNATIONAL UNITS TABLET PO SCH (08:52)
[2024-01-26] MEDS: INSULIN LISPRO (NovoLOG) PER UNIT SC SCH ×2 (08:52→20:51)
[2024-01-26] MEDS: APIXABAN 5 MG TAB (ELIQUIS) PO SCH (09:07)
[2024-01-26] MEDS: CYANOCOBALAMIN 500 MCG TAB PO SCH (09:07)
[2024-01-26] MEDS: TORSEMIDE 20 MG TAB PO SCH (09:08)
[2024-01-26] MEDS: ASPIRIN 81MG ENTERIC TABLET PO SCH (09:08)
[2024-01-26 11:50] VITALS: BP 125/60; TEMP 97.4; O2SAT 98
[2024-01-26] MEDS: MAG SULF 1GM/100ML (MAG RUN) 1 GM in IV 1 EA IV SCH (12:21)
[2024-01-26 13:16] LABS: HEMOGLOBIN A1c 8.2 % (4.0-6.0)
[2024-01-26 15:23] LABS: VITAMIN B12 LEVEL 411 PG/ML (211-911)
[2024-01-26 15:24] LABS: CHOLESTEROL LEVEL 172 MG/DL (<200); CHOLESTEROL RISK RATIO 4.25 (<5); FOLATE 13.34 NG/ML (>5.4); HDL CHOLESTEROL 40.4 MG/DL (>40); LDL CHOLESTEROL 88.2 MG/DL (<100); NON-HDL-C 131.6 MG/DL; TRIGLYCERIDES LEVEL 217 MG/DL (<150)
[2024-01-26 20:34] VITALS: BP 99/51; TEMP 98.9; O2SAT 95
[2024-01-26] MEDS: LEVEMIR (INSULIN DETEMIR) 1 UNITS/0.01ML SC SCH (20:51)
[2024-01-26] MEDS: oxyBUTYnin 5 MG TAB PO SCH (20:52)
[2024-01-27 04:04] VITALS: BP 103/54; TEMP 98.5; O2SAT 90
[2024-01-27 05:57] LABS: BASO % 0.7 % (0.0-1.0); EOS # 0.3 10^3/uL (0.0-0.5); EOS % 6.8 % (0.0-3.0); HEMATOCRIT 36.8 % (42.0-52.0); HEMOGLOBIN 12.9 g/dl (13.5-17.5); LYMPH # 1.5 10^3/uL (1.5-5.0); LYMPH % 34.7 % (24.0-44.0); MEAN CORPUSCULAR HEMOGLOBIN 30.9 pg (27.0-33.0); MEAN CORPUSCULAR HGB CONC 35.1 g/dl (32.0-36.5); MEAN CORPUSCULAR VOLUME 88.2 fl (80.0-96.0); MONO # 0.5 10^3/uL (0.0-0.8); MONO % 10.3 % (2.0-8.0); NEUTROPHILS # 2.1 10^3/uL (1.5-8.5); NEUTROPHILS % 46.8 % (36.0-66.0); PLATELET COUNT, AUTOMATED 187 10^3/uL (150-450); RED BLOOD COUNT 4.17 10^6/uL (4.30-6.10); WHITE BLOOD COUNT 4.4 10^3/uL (4.0-10.0)
[2024-01-27 06:28] LABS: BLOOD UREA NITROGEN 22 MG/DL (9-23); CALCIUM LEVEL 9.2 MG/DL (8.3-10.6); CARBON DIOXIDE LEVEL 27 MMOL/L (20-31); CHLORIDE LEVEL 104 MMOL/L (98-107); CREATININE FOR GFR 0.89 MG/DL (0.70-1.30); GLOMERULAR FILTRATION RATE > 60.0 (>42); GLUCOSE, FASTING 136 MG/DL (74-106); MAGNESIUM LEVEL 1.9 MG/DL (1.8-2.4); POTASSIUM SERUM 3.8 MMOL/L (3.5-5.1); SODIUM LEVEL 139 MMOL/L (136-145)
[2024-01-27 07:40] VITALS: BP 111/61; TEMP 97.7; O2SAT 91
[2024-01-27 12:21] VITALS: BP 140/66; TEMP 98; O2SAT 92
== END 2024-01-27 15:09 | disposition home or self-care (01) | DRG 884 ==
LOC: M ED 12:58 → EDBD 12:58 → M ED INP 20:52 → M PCU 23:23
PROVIDERS: ADMIT Preventive Medicine Undersea and Hyperbaric Medicine; ATTEND Preventive Medicine Undersea and Hyperbaric Medicine
DX: F03.90 Unspecified dementia, unspecified severity, without behavioral disturbance, psychotic disturbance, mood disturbance, and anxiety (principal); F43.10 Post-traumatic stress disorder, unspecified; E11.42 Type 2 diabetes mellitus with diabetic polyneuropathy; I10 Essential (primary) hypertension; E83.42 Hypomagnesemia; Z66 Do not resuscitate; R42 Dizziness and giddiness; K21.9 Gastro-esophageal reflux disease without esophagitis; N32.81 Overactive bladder; I89.0 Lymphedema, not elsewhere classified; Z79.01 Long term (current) use of anticoagulants; Z79.4 Long term (current) use of insulin; Z79.84 Long term (current) use of oral hypoglycemic drugs; Z79.899 Other long term (current) drug therapy; Z88.8 Allergy status to other drugs, medicaments and biological substances; Z86.711 Personal history of pulmonary embolism; Z96.653 Presence of artificial knee joint, bilateral; Z87.891 Personal history of nicotine dependence

== ENCOUNTER → 2024-02-02 | Outpatient (REF) | payer OTHER ==
[~2024-02-02] MED LIST changes: +ACET-897 PO; +FISH10002 PO; +INSUH10VL SC; +JARD1TAB3 PO; +MECL-86 PO; +MEMA10TA PO; +METF750T36 PO; +NITR4TASL SL; +POTA-151 PO; +SEMA1PEN2 SC; +TORS20TA2 PO; +VITA100093 PO; +VITA500T41 PO
== END ==
LOC: M LABWUC 16:36
PROVIDERS: ATTEND Nurse Practitioner Family
DX: C61 Malignant neoplasm of prostate (principal)

== ENCOUNTER → 2024-06-13 | Outpatient (REF) | payer MEDICARE, OTHER ==
[2024-06-13 13:25] LABS: BASO % 0.5 % (0.0-1.0); EOS # 0.2 10^3/uL (0.0-0.5); EOS % 5.2 % (0.0-3.0); HEMATOCRIT 38.2 % (42.0-52.0); HEMOGLOBIN 12.7 g/dl (13.5-17.5); LYMPH # 0.9 10^3/uL (1.5-5.0); LYMPH % 22.2 % (24.0-44.0); MEAN CORPUSCULAR HGB CONC 33.2 g/dl (32.0-36.5); MEAN CORPUSCULAR VOLUME 90.3 fl (80.0-96.0); MONO # 0.5 10^3/uL (0.0-0.8); MONO % 11.3 % (2.0-8.0); NEUTROPHILS # 2.6 10^3/uL (1.5-8.5); NEUTROPHILS % 60.3 % (36.0-66.0); PLATELET COUNT, AUTOMATED 203 10^3/uL (150-450); RED BLOOD COUNT 4.23 10^6/uL (4.30-6.10); WHITE BLOOD COUNT 4.2 10^3/uL (4.0-10.0)
[2024-06-13 13:34] LABS: ERYTHROCYTE SEDIMENTATION RATE 43 mm/hr (0-20)
[2024-06-13 13:57] LABS: ALBUMIN 3.5 G/DL (3.2-5.2); ALKALINE PHOSPHATASE 113 U/L (46-116); ALT/SGPT 9 U/L (7.0-40); AST/SGOT 12 U/L (<34); BILIRUBIN,TOTAL 0.6 MG/DL (0.3-1.2); BLOOD UREA NITROGEN 14 MG/DL (9-23); CALCIUM LEVEL 9.1 MG/DL (8.3-10.6); CARBON DIOXIDE LEVEL 25 MMOL/L (20-31); CHLORIDE LEVEL 103 MMOL/L (98-107); CREATININE FOR GFR 0.84 MG/DL (0.70-1.30); GLOMERULAR FILTRATION RATE > 60.0 (>42); GLUCOSE, FASTING 271 MG/DL (74-106); POTASSIUM SERUM 3.9 MMOL/L (3.5-5.1); SODIUM LEVEL 137 MMOL/L (136-145); TOTAL PROTEIN 7.1 G/DL (5.7-8.2)
== END ==
LOC: M LAB REF 12:54
DX: K68.12 Psoas muscle abscess (principal)

== ENCOUNTER → 2024-06-20 | Outpatient (REF) | payer OTHER, MEDICARE ==
[2024-06-20 14:53] LABS: BASO % 0.5 % (0.0-1.0); EOS # 0.4 10^3/uL (0.0-0.5); EOS % 5.5 % (0.0-3.0); HEMATOCRIT 37.1 % (42.0-52.0); HEMOGLOBIN 12.6 g/dl (13.5-17.5); LYMPH # 1.5 10^3/uL (1.5-5.0); MEAN CORPUSCULAR VOLUME 91.4 fl (80.0-96.0); MONO # 0.6 10^3/uL (0.0-0.8); MONO % 8.5 % (2.0-8.0); PLATELET COUNT, AUTOMATED 227 10^3/uL (150-450); RED BLOOD COUNT 4.06 10^6/uL (4.30-6.10); WHITE BLOOD COUNT 6.5 10^3/uL (4.0-10.0)
[2024-06-20 15:00] LABS: ERYTHROCYTE SEDIMENTATION RATE 30 mm/hr (0-20)
[2024-06-20 15:18] LABS: ALBUMIN 3.6 G/DL (3.2-5.2); ALKALINE PHOSPHATASE 120 U/L (46-116); ALT/SGPT < 9 U/L (7.0-40); AST/SGOT 9 U/L (<34); BILIRUBIN,TOTAL 0.5 MG/DL (0.3-1.2); BLOOD UREA NITROGEN 24 MG/DL (9-23); CALCIUM LEVEL 9.2 MG/DL (8.3-10.6); CARBON DIOXIDE LEVEL 26 MMOL/L (20-31); CHLORIDE LEVEL 106 MMOL/L (98-107); CREATININE FOR GFR 1.08 MG/DL (0.70-1.30); GLOMERULAR FILTRATION RATE > 60.0 (>42); GLUCOSE, FASTING 161 MG/DL (74-106); POTASSIUM SERUM 3.9 MMOL/L (3.5-5.1); SODIUM LEVEL 138 MMOL/L (136-145); TOTAL PROTEIN 6.9 G/DL (5.7-8.2)
== END ==
LOC: M LAB REF 14:16
PROVIDERS: ATTEND Nurse Practitioner Family
DX: K68.12 Psoas muscle abscess (principal)

== ENCOUNTER → 2024-06-24 | Outpatient (REF) | payer OTHER, MEDICARE ==
[2024-06-24 13:58] LABS: APPEARANCE, URINE CLEAR (CLEAR); BACTERIA, URINE AUTO NEGATIVE (NEGATIVE); BILIRUBIN, URINE AUTO NEGATIVE (NEGATIVE); BLOOD, URINE BLOOD NEGATIVE (NEGATIVE); COLOR, URINE YELLOW (YELLOW); GLUCOSE, URINE (UA) AUTO 3+ mg/dL (NEGATIVE); KETONE, URINE AUTO NEGATIVE (NEGATIVE); LEUKOCYTE ESTERASE, URINE AUTO NEGATIVE (NEGATIVE); NITRITE, URINE AUTO NEGATIVE (NEGATIVE); PROTEIN, URINE AUTO 1+ mg/dL (NEGATIVE); RBC, URINE AUTO 1 /HPF (0-3); SPECIFIC GRAVITY URINE AUTO 1.029 (1.002-1.035); SQUAMOUS EPITHELIAL CELL UR AU 0 /HPF (0-6); WBC, URINE AUTO 0 /HPF (0-3)
== END ==
LOC: M LABWUC 13:10
PROVIDERS: ATTEND Nurse Practitioner Family
DX: M54.50 Low back pain, unspecified (principal)

== ENCOUNTER → 2024-07-25 | Outpatient (REF) | payer OTHER ==
[2024-07-25 14:14] LABS: BASO % 0.5 % (0.0-1.0); EOS # 0.3 10^3/uL (0.0-0.5); EOS % 4.7 % (0.0-3.0); HEMATOCRIT 38.5 % (42.0-52.0); LYMPH # 1.4 10^3/uL (1.5-5.0); LYMPH % 24.9 % (24.0-44.0); MEAN CORPUSCULAR HEMOGLOBIN 30.2 pg (27.0-33.0); MEAN CORPUSCULAR HGB CONC 33.8 g/dl (32.0-36.5); MEAN CORPUSCULAR VOLUME 89.3 fl (80.0-96.0); MONO # 0.6 10^3/uL (0.0-0.8); MONO % 11.1 % (2.0-8.0); NEUTROPHILS # 3.4 10^3/uL (1.5-8.5); NEUTROPHILS % 57.9 % (36.0-66.0); PLATELET COUNT, AUTOMATED 220 10^3/uL (150-450); RED BLOOD COUNT 4.31 10^6/uL (4.30-6.10); WHITE BLOOD COUNT 5.8 10^3/uL (4.0-10.0)
[2024-07-25 14:22] LABS: ERYTHROCYTE SEDIMENTATION RATE 34 mm/hr (0-20)
[2024-07-25 14:46] LABS: ALBUMIN 3.6 G/DL (3.2-5.2); ALKALINE PHOSPHATASE 121 U/L (40-129); ALT/SGPT 9 U/L (7.0-40); AST/SGOT < 8 U/L (<34); BILIRUBIN,TOTAL 0.7 MG/DL (0.3-1.2); BLOOD UREA NITROGEN 29 MG/DL (9-23); CALCIUM LEVEL 10.2 MG/DL (8.3-10.6); CARBON DIOXIDE LEVEL 28 MMOL/L (20-31); CHLORIDE LEVEL 99 MMOL/L (98-107); CREATININE FOR GFR 0.82 MG/DL (0.70-1.30); GLOMERULAR FILTRATION RATE > 60.0 (>42); GLUCOSE, FASTING 237 MG/DL (74-106); POTASSIUM SERUM 3.9 MMOL/L (3.5-5.1); SODIUM LEVEL 136 MMOL/L (136-145); TOTAL PROTEIN 7.3 G/DL (5.7-8.2)
== END ==
LOC: M LAB REF 12:58
PROVIDERS: ATTEND Nurse Practitioner Family
DX: K68.12 Psoas muscle abscess (principal)

== ENCOUNTER → 2024-08-08 | Outpatient (REF) | payer MEDICARE ==
[2024-08-08 16:38] LABS: BASO % 0.6 % (0.0-1.0); EOS # 0.2 10^3/uL (0.0-0.5); EOS % 3.8 % (0.0-3.0); HEMATOCRIT 35.6 % (42.0-52.0); LYMPH # 1.3 10^3/uL (1.5-5.0); LYMPH % 24.5 % (24.0-44.0); MEAN CORPUSCULAR HEMOGLOBIN 30.6 pg (27.0-33.0); MEAN CORPUSCULAR HGB CONC 33.7 g/dl (32.0-36.5); MEAN CORPUSCULAR VOLUME 90.8 fl (80.0-96.0); MONO # 0.5 10^3/uL (0.0-0.8); MONO % 10.1 % (2.0-8.0); NEUTROPHILS # 3.2 10^3/uL (1.5-8.5); NEUTROPHILS % 60.6 % (36.0-66.0); PLATELET COUNT, AUTOMATED 208 10^3/uL (150-450); RED BLOOD COUNT 3.92 10^6/uL (4.30-6.10); WHITE BLOOD COUNT 5.2 10^3/uL (4.0-10.0)
[2024-08-08 16:54] LABS: ERYTHROCYTE SEDIMENTATION RATE 25 mm/hr (0-20)
[2024-08-08 17:12] LABS: ALBUMIN 3.5 G/DL (3.2-5.2); ALKALINE PHOSPHATASE 91 U/L (40-129); ALT/SGPT 10 U/L (7.0-40); AST/SGOT 11 U/L (<34); BILIRUBIN,TOTAL 0.6 MG/DL (0.3-1.2); BLOOD UREA NITROGEN 26 MG/DL (9-23); CALCIUM LEVEL 9.4 MG/DL (8.3-10.6); CARBON DIOXIDE LEVEL 28 MMOL/L (20-31); CHLORIDE LEVEL 105 MMOL/L (98-107); GLOMERULAR FILTRATION RATE > 60.0 (>42); GLUCOSE, FASTING 244 MG/DL (74-106); POTASSIUM SERUM 3.9 MMOL/L (3.5-5.1); SODIUM LEVEL 139 MMOL/L (136-145); TOTAL PROTEIN 6.9 G/DL (5.7-8.2)
== END ==
LOC: M LAB REF 16:06
PROVIDERS: ATTEND Nurse Practitioner Family
DX: K68.12 Psoas muscle abscess (principal)

== ENCOUNTER → 2024-08-16 | Outpatient (REF) | payer MEDICARE, OTHER | LOC: M LABWUC 18:03 | PROVIDERS: ATTEND Nurse Practitioner Family | DX: C61 Malignant neoplasm of prostate (principal) ==

== ENCOUNTER → 2024-08-17 | Outpatient (CLI) | payer MEDICARE | LOC: M SOG 07-17 13:30 | PROVIDERS: ATTEND Orthopaedic Surgery | DX: M54.50 Low back pain, unspecified (principal); M47.817 Spondylosis without myelopathy or radiculopathy, lumbosacral region; M41.9 Scoliosis, unspecified ==

== ENCOUNTER → 2024-12-07 | Outpatient (REF) | payer MEDICARE ==
[2024-12-07 14:25] LABS: BASO # 0.1 10^3/uL (0.0-0.2); BASO % 0.9 % (0.0-1.0); EOS # 0.3 10^3/uL (0.0-0.5); EOS % 3.8 % (0.0-3.0); HEMATOCRIT 41.4 % (42.0-52.0); HEMOGLOBIN 13.8 g/dl (13.5-17.5); LYMPH # 1.7 10^3/uL (1.5-5.0); LYMPH % 24.9 % (24.0-44.0); MEAN CORPUSCULAR HEMOGLOBIN 30.3 pg (27.0-33.0); MEAN CORPUSCULAR HGB CONC 33.3 g/dl (32.0-36.5); MEAN CORPUSCULAR VOLUME 90.8 fl (80.0-96.0); MONO # 0.6 10^3/uL (0.0-0.8); MONO % 8.4 % (2.0-8.0); NEUTROPHILS # 4.1 10^3/uL (1.5-8.5); NEUTROPHILS % 61.4 % (36.0-66.0); PLATELET COUNT, AUTOMATED 249 10^3/uL (150-450); RED BLOOD COUNT 4.56 10^6/uL (4.30-6.10); WHITE BLOOD COUNT 6.6 10^3/uL (4.0-10.0)
[2024-12-07 15:29] LABS: C REACTIVE PROTEIN QUANTITATIV 0.95 MG/DL (<1.0)
[2024-12-07 15:30] LABS: ALBUMIN 3.9 G/DL (3.2-5.2); ALKALINE PHOSPHATASE 102 U/L (40-129); ALT/SGPT 27 U/L (7.0-40); AST/SGOT 21 U/L (<34); BILIRUBIN,TOTAL 0.5 MG/DL (0.3-1.2); BLOOD UREA NITROGEN 30 MG/DL (9-23); CALCIUM LEVEL 9.5 MG/DL (8.3-10.6); CARBON DIOXIDE LEVEL 27 MMOL/L (20-31); CHLORIDE LEVEL 98 MMOL/L (98-107); CPK CREATINE PHOSPHOKINASE 219 U/L (46-171); GLOMERULAR FILTRATION RATE > 60.0 (>42); GLUCOSE, FASTING 188 MG/DL (74-106); SODIUM LEVEL 140 MMOL/L (136-145); TOTAL PROTEIN 7.8 G/DL (5.7-8.2)
== END ==
LOC: M LAB REF 13:02
PROVIDERS: ATTEND Nurse Practitioner Family
DX: M86.171 Other acute osteomyelitis, right ankle and foot (principal)

== ENCOUNTER → 2024-12-09 | Outpatient (REF) | payer MEDICARE | LOC: M LABWUC 17:17 | PROVIDERS: ATTEND Nurse Practitioner Family | DX: M86.9 Osteomyelitis, unspecified (principal) ==

== ENCOUNTER → 2024-12-12 | Outpatient (REF) | payer MEDICARE ==
[2024-12-12 15:08] LABS: BASO % 0.6 % (0.0-1.0); EOS # 0.3 10^3/uL (0.0-0.5); EOS % 4.6 % (0.0-3.0); HEMATOCRIT 40.8 % (42.0-52.0); HEMOGLOBIN 13.4 g/dl (13.5-17.5); LYMPH # 1.4 10^3/uL (1.5-5.0); LYMPH % 22.7 % (24.0-44.0); MEAN CORPUSCULAR HEMOGLOBIN 30.5 pg (27.0-33.0); MEAN CORPUSCULAR HGB CONC 32.8 g/dl (32.0-36.5); MEAN CORPUSCULAR VOLUME 92.7 fl (80.0-96.0); MONO # 0.5 10^3/uL (0.0-0.8); MONO % 8.6 % (2.0-8.0); NEUTROPHILS # 3.9 10^3/uL (1.5-8.5); NEUTROPHILS % 62.7 % (36.0-66.0); PLATELET COUNT, AUTOMATED 255 10^3/uL (150-450); WHITE BLOOD COUNT 6.3 10^3/uL (4.0-10.0)
[2024-12-12 15:29] LABS: C REACTIVE PROTEIN QUANTITATIV 0.97 MG/DL (<1.0)
[2024-12-12 15:30] LABS: ALBUMIN 3.7 G/DL (3.2-5.2); ALKALINE PHOSPHATASE 92 U/L (40-129); ALT/SGPT 25 U/L (7.0-40); AST/SGOT 19 U/L (<34); BILIRUBIN,TOTAL 0.6 MG/DL (0.3-1.2); BLOOD UREA NITROGEN 28 MG/DL (9-23); CALCIUM LEVEL 9.4 MG/DL (8.3-10.6); CARBON DIOXIDE LEVEL 28 MMOL/L (20-31); CHLORIDE LEVEL 101 MMOL/L (98-107); GLOMERULAR FILTRATION RATE > 60.0 (>42); GLUCOSE, FASTING 154 MG/DL (74-106); POTASSIUM SERUM 3.9 MMOL/L (3.5-5.1); SODIUM LEVEL 140 MMOL/L (136-145); TOTAL PROTEIN 7.2 G/DL (5.7-8.2)
[2024-12-12 15:32] LABS: CPK CREATINE PHOSPHOKINASE 139 U/L (46-171)
== END ==
LOC: M LAB REF 14:31
PROVIDERS: ATTEND Nurse Practitioner Family
DX: M86.171 Other acute osteomyelitis, right ankle and foot (principal)

== ENCOUNTER → 2024-12-19 | Outpatient (REF) | payer MEDICARE, OTHER ==
[2024-12-19 13:39] LABS: BASO % 0.6 % (0.0-1.0); EOS # 0.2 10^3/uL (0.0-0.5); EOS % 3.2 % (0.0-3.0); HEMATOCRIT 41.5 % (42.0-52.0); HEMOGLOBIN 13.7 g/dl (13.5-17.5); LYMPH # 1.2 10^3/uL (1.5-5.0); LYMPH % 18.6 % (24.0-44.0); MEAN CORPUSCULAR HEMOGLOBIN 30.6 pg (27.0-33.0); MEAN CORPUSCULAR VOLUME 92.8 fl (80.0-96.0); MONO # 0.5 10^3/uL (0.0-0.8); MONO % 7.4 % (2.0-8.0); NEUTROPHILS # 4.4 10^3/uL (1.5-8.5); NEUTROPHILS % 69.7 % (36.0-66.0); PLATELET COUNT, AUTOMATED 238 10^3/uL (150-450); RED BLOOD COUNT 4.47 10^6/uL (4.30-6.10); WHITE BLOOD COUNT 6.3 10^3/uL (4.0-10.0)
[2024-12-19 14:08] LABS: ALBUMIN 3.9 G/DL (3.2-5.2); ALKALINE PHOSPHATASE 95 U/L (40-129); ALT/SGPT 24 U/L (7.0-40); AST/SGOT 17 U/L (<34); BILIRUBIN,TOTAL 0.4 MG/DL (0.3-1.2); BLOOD UREA NITROGEN 35 MG/DL (9-23); C REACTIVE PROTEIN QUANTITATIV 0.83 MG/DL (<1.0); CALCIUM LEVEL 9.4 MG/DL (8.3-10.6); CARBON DIOXIDE LEVEL 26 MMOL/L (20-31); CHLORIDE LEVEL 101 MMOL/L (98-107); CREATININE FOR GFR 1.15 MG/DL (0.70-1.30); GLOMERULAR FILTRATION RATE > 60.0 (>42); GLUCOSE, FASTING 312 MG/DL (74-106); POTASSIUM SERUM 3.8 MMOL/L (3.5-5.1); SODIUM LEVEL 138 MMOL/L (136-145); TOTAL PROTEIN 7.4 G/DL (5.7-8.2)
[2024-12-19 14:11] LABS: CPK CREATINE PHOSPHOKINASE 70 U/L (46-171)
== END ==
LOC: M LAB REF 11:43
PROVIDERS: ATTEND Nurse Practitioner Family
DX: M86.171 Other acute osteomyelitis, right ankle and foot (principal)

== ENCOUNTER → 2024-12-26 | Outpatient (REF) | payer MEDICARE, OTHER ==
[2024-12-26 15:10] LABS: BASO % 0.6 % (0.0-1.0); EOS # 0.2 10^3/uL (0.0-0.5); EOS % 2.7 % (0.0-3.0); HEMATOCRIT 39.7 % (42.0-52.0); HEMOGLOBIN 13.5 g/dl (13.5-17.5); LYMPH # 1.5 10^3/uL (1.5-5.0); LYMPH % 21.8 % (24.0-44.0); MEAN CORPUSCULAR HEMOGLOBIN 30.8 pg (27.0-33.0); MEAN CORPUSCULAR VOLUME 90.6 fl (80.0-96.0); MONO # 0.6 10^3/uL (0.0-0.8); MONO % 9.2 % (2.0-8.0); NEUTROPHILS # 4.4 10^3/uL (1.5-8.5); NEUTROPHILS % 65.3 % (36.0-66.0); PLATELET COUNT, AUTOMATED 183 10^3/uL (150-450); RED BLOOD COUNT 4.38 10^6/uL (4.30-6.10); WHITE BLOOD COUNT 6.7 10^3/uL (4.0-10.0)
[2024-12-26 15:32] LABS: C REACTIVE PROTEIN QUANTITATIV 1.42 MG/DL (<1.0)
[2024-12-26 15:33] LABS: ALBUMIN 3.9 G/DL (3.2-5.2); ALKALINE PHOSPHATASE 102 U/L (40-129); ALT/SGPT 24 U/L (7.0-40); AST/SGOT 17 U/L (<34); BILIRUBIN,TOTAL 0.6 MG/DL (0.3-1.2); BLOOD UREA NITROGEN 28 MG/DL (9-23); CALCIUM LEVEL 9.8 MG/DL (8.3-10.6); CARBON DIOXIDE LEVEL 26 MMOL/L (20-31); CHLORIDE LEVEL 103 MMOL/L (98-107); CREATININE FOR GFR 1.07 MG/DL (0.70-1.30); GLOMERULAR FILTRATION RATE > 60.0 (>42); GLUCOSE, FASTING 239 MG/DL (74-106); POTASSIUM SERUM 4.7 MMOL/L (3.5-5.1); SODIUM LEVEL 138 MMOL/L (136-145); TOTAL PROTEIN 7.4 G/DL (5.7-8.2)
[2024-12-26 15:38] LABS: CPK CREATINE PHOSPHOKINASE 104 U/L (46-171)
== END ==
LOC: M LAB REF 14:35
PROVIDERS: ATTEND Nurse Practitioner Family
DX: M86.171 Other acute osteomyelitis, right ankle and foot (principal)

== ENCOUNTER → 2025-04-12 | Outpatient (REF) | payer MEDICARE, OTHER | LOC: M SFHCWOUN 14:26 | PROVIDERS: ATTEND Physician Assistant | DX: E11.621 Type 2 diabetes mellitus with foot ulcer (principal); L97.512 Non-pressure chronic ulcer of other part of right foot with fat layer exposed ==

== ENCOUNTER → 2025-04-14 | Outpatient (CLI) | payer OTHER, MEDICARE ==
[~2025-04-14] VITALS: Ht 175.3 cm; Wt 96.3 kg
[~2025-04-14] MED LIST changes: +ACETAMINOPHEN 325 MG TAB PO PRN; +NS (Normal Saline) 0.9% 1,000 ML IV SCH; +ONDANSETRON 4MG 2ML VIAL IV PRN; +PERCOCET 5MG/325MG TAB PO PRN
[2025-04-14 12:15] VITALS: TEMP 97.7
[2025-04-14 12:44] LABS: PLATELET COUNT, AUTOMATED 229 10^3/uL (150-450)
[2025-04-14 13:13] LABS: CALCIUM LEVEL 8.8 MG/DL (8.3-10.6); CARBON DIOXIDE LEVEL 24.0 MMOL/L (20-31); CHLORIDE LEVEL 103.0 MMOL/L (98-107); CREATININE FOR GFR 0.97 MG/DL (0.70-1.30); GLOMERULAR FILTRATION RATE 82.4 (>42); POTASSIUM SERUM 4.0 MMOL/L (3.5-5.1); SODIUM LEVEL 140.0 MMOL/L (136-145)
[2025-04-14 13:25] LABS: INR 1.0
[2025-04-14] MEDS: NS (Normal Saline) 0.9% 1,000 ML IV SCH (13:34)
[2025-04-14] MEDS: MIDAZOLAM INJ 2 MG/2 ML VIAL IV PRN (13:34)
[2025-04-14] MEDS: HEPARIN 1,000 UNITS/ML 10 ML VIAL (FOR RADIOLOGY & DIALYSIS ONLY) IV PRN (14:15)
[2025-04-14] MEDS: ISOVUE-300 61% 100 ML VIAL IV SCH (14:46)
[2025-04-14] MEDS: LIDOCAINE 1% MDV 20 ML VIAL SC SCH (14:46)
[2025-04-14 17:00] VITALS: BP 128/58; O2SAT 99
== END ==
LOC: M IRPRO 11:59
PROVIDERS: ATTEND Radiology Diagnostic Radiology
DX: I80.291 Phlebitis and thrombophlebitis of other deep vessels of right lower extremity (principal)
CPT/HCPCS: 36415; 37228; 37232; 75774; 80048; 85027; 85610; 93975; 99152; 99153; C1760; C1886; C1887; C1894; C2623; J2250; J3010; Q9967

== ENCOUNTER → 2025-05-01 | Outpatient (CLI) | payer OTHER, MEDICARE ==
[~2025-05-01] MED LIST changes: -ACETAMINOPHEN 325 MG TAB PO PRN; -NS (Normal Saline) 0.9% 1,000 ML IV SCH; -ONDANSETRON 4MG 2ML VIAL IV PRN; -PERCOCET 5MG/325MG TAB PO PRN
== END ==
LOC: M RAD 14:12
PROVIDERS: ATTEND Radiology Diagnostic Radiology
DX: I70.203 Unspecified atherosclerosis of native arteries of extremities, bilateral legs (principal)

== ENCOUNTER → 2025-05-03 | Outpatient (POV) | payer OTHER, MEDICARE ==
[~2025-05-03] VITALS: Ht 175.3 cm; Wt 100.9 kg
[2025-05-03 09:20] VITALS: BP 160/78; O2SAT 98
== END ==
LOC: M IRPOV 09:14
PROVIDERS: ATTEND Registered Nurse School
DX: I70.235 Atherosclerosis of native arteries of right leg with ulceration of other part of foot (principal); L97.519 Non-pressure chronic ulcer of other part of right foot with unspecified severity; Z88.8 Allergy status to other drugs, medicaments and biological substances

== ENCOUNTER → 2025-08-04 | Outpatient (REF) | payer OTHER ==
[2025-08-04 18:31] LABS: ESTIMATED AVERAGE GLUCOSE 309.0 MG/DL (60-110)
== END ==
LOC: M SFHCWOUN 17:14
PROVIDERS: ATTEND Physician Assistant
DX: E11.621 Type 2 diabetes mellitus with foot ulcer (principal); L97.509 Non-pressure chronic ulcer of other part of unspecified foot with unspecified severity

== ENCOUNTER → 2025-08-07 | Outpatient (CLI) | payer MEDICARE, OTHER | LOC: M RAD 06-07 13:57 | PROVIDERS: ATTEND Registered Nurse School | DX: I87.2 Venous insufficiency (chronic) (peripheral) (principal); I83.891 Varicose veins of right lower extremity with other complications ==